=== PATIENT | female | born 1985 | race Caucasian/White ===

== ENCOUNTER 2020-06-22 08:45 | Emergency (ER) | payer BC, SELFPAY ==
--- NOTE | ~2020-06-22 | XR_ITS ---
EXAMINATION: XR chest 2V EXAM DATE: 06/22/2020 09:21 INDICATION: Intermittent productive cough TECHNIQUE: Frontal and lateral projections of the chest obtained and reviewed. There is no prior genevieve dy for comparison. FINDINGS: The lungs are clear. There are no pleural effusions. The cardiomediastinal silhouette is within normal limits. There is no pneumothorax suspected. The bones and soft tissues are unremarkab le. IMPRESSION: No acute cardiopulmonary findings. Reviewed, dictated and finalized at location B.
[2020-06-22 08:55] VITALS: BP 136/89; PULSE 92; RESP 16; TEMP 36.9; O2SAT 96
--- NOTE | 2020-06-22 09:24 | ED.URI ---
HPI - URI/Sore Throat General Chief Complaint: Upper Respiratory Infection Stated Complaint: Cough Time Seen by Provider: 06/22/20 09:20 Source: patient Mode of arrival: ambulatory Limitations: no limitations History of Present Illness HPI Narrative: Ivis Martinez is a 35 yo female with a PMH of asthma who comes to express care for asthma exacerbation she is gone through her rescue inhaler and has no medication at home present to be able to treat her asthma she states that this started on Friday and sincerity she has smoked very few cigarettes because smoking causes her to have a coughing fit , although patient does smell of cigarette smoke Related Data Home Medications Medication Instructions Recorded Confirmed albuterol sulfate 2 puff INHALATION Q6-12H 06/22/20 06/22/20 diazepam [Valium] 2 mg PO BID 06/22/20 06/22/20 venlafaxine [Effexor XR] 37.5 mg PO DAILY 06/22/20 06/22/20 Allergies Allergy/AdvReac Type Severity Reaction Status Date / Time No Known Allergies Allergy Verified 06/22/20 09:19 Review of Systems Review of Systems: Narrative: CONSTITUTIONAL: Denies fever, chills, sweats. EYES: Denies visual changes, redness, discharge. ENT: Denies rhinorrhea, congestion, sore throat, otalgia. CARDIOVASCULAR: Denies chest pain, palpitations, edema. RESPIRATORY: Has dyspnea, has wheezing, has cough, sore ribs from coughing GASTROINTESTINAL: Denies abdominal pain, nausea, vomiting, diarrhea. GENITOURINARY: Denies dysuria, hematuria, abnormal discharge SKIN: Denies rash or itching. NEUROLOGIC: Denies numbness, or focal weakness. PSYCHIATRIC: Denies anxiety or depression. FOR[facility], LATER [facility] Past Medical History Medical History Asthma Family History Family History Other Diabetes mellitus Hypertension Social History Social History (Updated 06/22/20 @ 09:34 by Pat Aguilar CNP) Smoking packs per day: 1 Smoking cigarettes per day: 20.0 Smoking status: Current every day smoker Tobacco type: cigarettes Alcohol intake: former Gender identity (if verbalized by the patient): Female Comments At time of signature, I agree with nursing past medical, surgical, social and family history. There is no relevant family history pertinent to the presenting complaint. Exam Narrative: Exam Narrative: GENERAL: This is a well-nourished, well-developed patient, in moderate distress HEAD: normocephalic, atraumatic. EYES: . Sclera clear/white. Vision is grossly intact. EARS: External ears normal, . Hearing grossly intact. NOSE: External nose normal without nasal discharge, nares without redness, no rhinorrhea. THROAT: Mucous membranes moist, NECK: Neck supple, non-tender CARDIOVASCULAR: Regular rate and rhythm without murmurs, gallops, or rubs. RESPIRATORY: Clear to auscultation. Breath sounds diminished bilaterally; diffuse wheezing all wood, dry cough, yellow breath GASTROINTESTINAL: Abdomen soft, non-tender, SKIN: warm, intact with no suspicious lesions or rash, good texture and turgor. NEURO: awake, alert, and oriented to person, place and time. There were no obvious focal neurologic abnormalities. Steady gait EXTREMITIES: Normal range of motion. BACK: Nontender without deformity Course Course Emergency Course: Chest Xray- results: No acute pulmonary findings Given nebulizer treatment here with combination of albuterol and Atrovent; also given 125 mg IM Solu-Medrol Reassessment 1: Patient tolerated treatment and improved breath sounds but still wheezing, especially on L. Given po fluids and repeat neb treatment Reassessment 2; no longer coughing, breath sounds still coarse, aerating well, DISCHARGE: Started on prednisone 40 mg daily x5 days, cough medication, rescue inhaler with a refill, given Zithromax also due to smoking history; IF INCREASED SOB , WHEEZING, TO GO TO er Vital Signs Vital si
[2020-06-22] MEDS: methylPREDNISolone SOD SUCC 125 MG VIAL IM (09:36)
[2020-06-22] MEDS: IPRATROPIUM BR 0.02% INH SOLN 0.5 MG/2.5 ML VIAL INHALATION ×2 (09:38→10:23)
[2020-06-22] MEDS: ALBUTEROL SULFATE NEB 2.5 MG/3 ML INH INHALATION ×2 (09:38→10:23)
[2020-06-22 10:25] VITALS: PULSE 99; RESP 22; O2SAT 98
[2020-06-22 11:04] VITALS: PULSE 88; O2SAT 97
--- NOTE | 2020-06-23 12:37 | PC.NURSE ---
1232- Pharmacy was unable to get bromphen pseudophed code cough syrup. Called and spoke with Judy at [facility] rx change to virtussin ac- 1t q4h prn #120mL 0 refills. H. Jeff
== END 2020-06-22 11:04 | disposition home or self-care (01) ==
PROVIDERS: Emergency Provider Nurse Practitioner
DX: J45.41 Moderate persistent asthma with (acute) exacerbation (principal); F17.200 Nicotine dependence, unspecified, uncomplicated; F17.210 Nicotine dependence, cigarettes, uncomplicated; F32.9 Major depressive disorder, single episode, unspecified
CPT/HCPCS: 71046; 94640; 96372; 99213; G0463; J2930